=== PATIENT | female | born 2000 | race American Indian/Alaskan Native ===

== ENCOUNTER 2020-08-08 14:53 | Emergency (ER) | payer OTHER ==
[2020-08-08 15:45] VITALS: BP 135/65
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
--- NOTE | 2020-08-08 17:30 | XRay Report ---
RIGHT RIBS 3 VIEWS INDICATION / CLINICAL INFORMATION: Right side chest and rib tenderness. COMPARISON: None available. FINDINGS: RIBS: No acute, displaced fracture or other acute abnormality. LUNGS: No acute findings. No pneumothorax. Signer Name: Chuck Rebolledo MD Signed: 08/08/2020 5:25 PM Workstation Name: [id number]
== END 2020-08-08 18:20 | disposition home or self-care (01) ==
LOC: ED 14:53
DX: S16.1XXA Strain of muscle, fascia and tendon at neck level, initial encounter (principal); R07.89 Other chest pain; Z79.899 Other long term (current) drug therapy; V49.59XA Passenger injured in collision with other motor vehicles in traffic accident, initial encounter; Y92.410 Unspecified street and highway as the place of occurrence of the external cause; Y93.89 Activity, other specified; Y99.8 Other external cause status

== ENCOUNTER 2020-08-12 12:54 | Emergency (ER) | payer OTHER ==
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
[2020-08-12 17:42] VITALS: BP 112/72
== END 2020-08-12 17:42 | disposition home or self-care (01) ==
LOC: ED 12:54
DX: S16.1XXA Strain of muscle, fascia and tendon at neck level, initial encounter (principal); Z79.899 Other long term (current) drug therapy; X58.XXXA Exposure to other specified factors, initial encounter; Y93.89 Activity, other specified; Y92.89 Other specified places as the place of occurrence of the external cause; Y99.8 Other external cause status
CPT/HCPCS: 72125